=== PATIENT | male | born 1955 | race Caucasian/White ===

== ENCOUNTER → 2018-03-08 | Outpatient (CLI) | payer BC ==
[~2018-03-08] MED LIST: MULT-506 PO
[2018-03-08 18:20] LABS: BLOOD UREA NITROGEN 20 mg/dl (7-18); CREATININE 0.81 mg/dl (0.60-1.40)
== END | disposition home or self-care (01) ==
LOC: C.LABMFLN 13:30
PROVIDERS: ATTEND Family Medicine
DX: C61 Malignant neoplasm of prostate (principal)

== ENCOUNTER → 2018-03-16 | Outpatient (CLI) | payer BC ==
[~2018-03-16] MED LIST changes: +GADAVIST IV PRN
--- NOTE | 2018-03-16 14:39 | DIAGNOSTIC IMAGING REPORT ---
PELVIC COMBO CLINICAL HISTORY: 62 years-old Male presenting with CARCINOMA OF THE PROSTATE. TECHNIQUE: Multisequence, multiplanar MR imaging of the pelvis was performed before and after the administration of intravenous contrast. IV contrast: 6.5 mL of Gadavist. COMPARISON: CT from 11/28/2017. FINDINGS: Localizer images: Unremarkable. Bone marrow signal intensity normal. Visualized portion of the scrotum normal. Fat-containing right inguinal hernia. Allowing for underdistention, mild circumferential bladder wall thickening could suggest chronic bladder outlet obstruction. Prostate demonstrates mild changes of benign prostatic hyperplasia. No evidence of extraprostatic extension. Few scattered T1 hyperintense foci in the prostate on precontrast imaging may relate to calcification. No significant evidence of hemorrhage. No pelvic lymphadenopathy. IMPRESSION: 1. Benign prostatic hyperplasia. No cinthia evidence of extraprostatic extension or pelvic lymphadenopathy. Electronically signed by: Mikhail Alexander M.D. 03/16/2018 2:38 PM Dictated Date/Time: 03/16/2018 2:31 PM
== END | disposition home or self-care (01) ==
LOC: C.MRI 12:26
PROVIDERS: ATTEND Urology
DX: C61 Malignant neoplasm of prostate (principal)

== ENCOUNTER 2018-03-30 05:22 | Inpatient (IN) | payer BC ==
[2018-03-16 10:11] VITALS: BMI 24.0
--- NOTE | 2018-03-16 11:12 | DIAGNOSTIC IMAGING REPORT ---
CHEST 2 VIEWS ROUTINE CLINICAL HISTORY: PAT preoperative evaluation COMPARISON STUDY: No previous studies for comparison. FINDINGS: The bones soft tissues and hemidiaphragms are normal. The cardiomediastinal silhouette is normal. The lungs are clear. The pulmonary vasculature is normal. IMPRESSION: Negative chest. The above report was generated using voice recognition software. It may contain grammatical, syntax or spelling errors. Electronically signed by: Victor M Cortez M.D. 03/16/2018 11:10 AM Dictated Date/Time: 03/16/2018 11:10 AM
[2018-03-16 12:26] LABS: BASO % 0.2 %; BASO ABS # 0.01 K/uL (0-0.2); EOS % 0.9 %; EOS ABS # 0.05 K/uL (0-0.5); IG# 0.01 K/uL (0.00-0.02); LYMPH % 19.4 %; LYMPH ABS # 1.05 K/uL (1.2-3.4); MEAN CELL VOLUME 89.1 fL (80-100); MEAN CORPUSCULAR HEMOGLOBIN 30.4 pg (25-34); MEAN CORPUSCULAR HGB CONC 34.1 g/dl (32-36); MEAN PLATELET VOLUME 9.2 fL (7.4-10.4); MONO % 7.4 %; NEUT % 71.9 %; NEUT ABS # 3.88 K/uL (1.4-6.5); PLATELET COUNT 262 K/uL (130-400); RED CELL DISTRIBUTION WIDTH CV 12.7 % (11.5-14.5); RED CELL DISTRIBUTION WIDTH SD 40.9 fL (36.4-46.3)
[2018-03-16 12:45] LABS: CALCIUM 9.2 mg/dl (8.5-10.1); CREATININE 0.88 mg/dl (0.60-1.40); POTASSIUM 4.2 mmol/L (3.5-5.1)
[2018-03-30] VITALS (7 sets, daily range): BP systolic 93–117; BP diastolic 60–86; PULSE 52–65; TEMP 36.3–37.1; O2SAT 94–99; Ht 167.6 cm; Wt 67.6 kg
[~2018-03-30] VITALS: Ht 167.6 cm; Wt 67.6 kg
[~2018-03-30 05:22] MED LIST changes: -GADAVIST IV PRN
[2018-03-30] MEDS ORDERED: LACTATED RINGER'S 1000ML 1,000 ML IV SCH (06:00)
[2018-03-30] MEDS ORDERED: HEPARIN SOD 5000 UNIT/0.5 ML CARP SQ SCH (06:00)
[2018-03-30] MEDS ORDERED: ONDANSETRON INJ 2 MG/ML 2 ML VIAL ONE ×2 (06:53→12:26)
[2018-03-30] MEDS ORDERED: LIDOCAINE HCL 2% 2 ML VIAL (20MG/ML) ONE (06:53)
[2018-03-30] MEDS ORDERED: ROCURONIUM BROMIDE 10 MG/ML 5 ML VIAL ONE (06:53)
[2018-03-30] MEDS ORDERED: NEOSTIGMINE METHYLSULFATE 5 MG/5 ML SYR ONE ×2 (06:53→11:25)
[2018-03-30] MEDS ORDERED: PROPOFOL IV EMULSION 10 MG/ML 20 ML VIAL ONE (06:53)
[2018-03-30] MEDS ORDERED: GLYCOPYRROLATE INJ 0.2 MG/ML VIAL ONE ×2 (06:53→11:25)
[2018-03-30] MEDS ORDERED: DEXAMETHASONE SOD INJ 4 MG/ML VIAL ONE (06:53)
[2018-03-30] MEDS ORDERED: FENTANYL CITRATE INJ 50 MCG/1 ML 2 ML VIAL ONE ×2 (06:54→11:42)
[2018-03-30] MEDS ORDERED: MIDAZOLAM HCL 1 MG/ML 2ML VIAL ONE (06:54)
[2018-03-30] MEDS ORDERED: BUPIVACAINE 0.5 % 5 MG/1 ML MPF 30ML VIAL ONE (07:53)
[2018-03-30] MEDS ORDERED: BELLADONNA/OPIUM SUPP 60 MG SUPP PR ONE (07:58)
[2018-03-30] MEDS ORDERED: NURSING VERBAL MED ORDER STA (08:14)
--- NOTE | 2018-03-30 08:15 | History & Physical Bridge Note ---
H&P Re-Evaluation Bridge Note: I have examined the patient, reviewed the History & Physical and in the interval since the performance of the History & Physical I have noted the following changes of clinical significance: No changes noted
[2018-03-30] MEDS ORDERED: CEFAZOLIN 2000MG IV PUSH 15 ML IV STA (08:17)
[2018-03-30] MEDS ORDERED: TISSEEL FIBRIN SEALANT 4ML TOP ONE ×2 (10:00→11:19)
[2018-03-30] MEDS ORDERED: EpHEDrine SULFATE 50MG/5ML SYR ONE (10:45)
[2018-03-30] MEDS ORDERED: PHENYLEPHRINE 100MCG/ML 5ML SYR ONE (10:45)
[2018-03-30] MEDS ORDERED: ESMOLOL HCL 10 MG/ML 10 ML VIAL ONE (10:45)
[2018-03-30] MEDS ORDERED: CISATRACURIUM BESYLATE IV SOLN 2 MG/ML 10 ML VIAL ONE ×2 (10:57→11:06)
[2018-03-30] MEDS ORDERED: ATROPINE SULFATE 0.1 MG/ML 5ML SYR IV PRN (11:30)
[2018-03-30] MEDS ORDERED: LABETALOL HCL IV 5 MG/ML 20ML IV PRN (11:30)
[2018-03-30] MEDS ORDERED: ONDANSETRON INJ 2 MG/ML 2 ML VIAL IV PRN ×2 (11:30→12:00)
[2018-03-30] MEDS ORDERED: FLUMAZENIL 0.1 MG/1 ML 10 ML VIAL IV PRN (11:30)
[2018-03-30] MEDS ORDERED: NALOXONE HCL 0.4 MG/1 ML VIAL/CARP IV PRN (11:30)
[2018-03-30] MEDS ORDERED: HYDROmorphone INJ 0.5 MG/0.5 ML SYR IV PRN (11:30)
[2018-03-30] MEDS ORDERED: EpHEDrine SULFATE INJ 50 MG/ML AMP IV PRN (11:30)
[2018-03-30] MEDS ORDERED: PROMETHAZINE HCL INJ 12.5 MG in SODIUM CHLORIDE 0.9% 50ML 50 ML IV PRN (11:30)
[2018-03-30] MEDS ORDERED: FLOSEAL HEMOSTATIC MATRIX 10ML TOP ONE (11:37)
--- NOTE | 2018-03-30 11:55 | [facility] Post Operative Brief Note ---
Immediate Operative Summary Operative Date March 30, 2018. Pre-Operative Diagnosis 1. Prostate Cancer 2. Elevated Prostate Specific Antigen Post-Operative Diagnosis 1. Prostate Cancer 2. Elevated Prostate Specific Antigen Procedure(s) Performed Robotic Assisted Laparoscopic Prostatectomy Surgeon Dr. Austin Edwards Coding Compliance Manager Surgeon(s) DAKOTAH Celis Estimated Blood Loss 175 ML Findings Consistent with Post-Op Diagnosis Specimens Permanent: A. Right Pelvic Lymph Node (fresh) B. Michelle-prostatic fat C. Left Pelvic Lymph Node (fresh) D. Prostate and Seminal Vesicle Anesthesia Type General Complication(s) none Disposition Accompanied Pt To Recover: yes Disposition: Recovery Room / PACU (stable)
[2018-03-30] MEDS ORDERED: DOCU-94 PO (11:57)
[2018-03-30] MEDS ORDERED: ACET-749 PO (11:57)
[2018-03-30] MEDS ORDERED: DTR/5 PO (11:57)
[2018-03-30] MEDS ORDERED: CIPR1TAB10 PO (11:57)
--- NOTE | 2018-03-30 11:58 | Discharge Instructions ---
Discharge Instructions Date of Service March 30, 2018. Admission Reason for Admission: Prostate Cancer Discharge Discharge Diagnosis / Problem: Prostate Cancer Discharge Goals Goal(s): Decrease discomfort, Improve disease control, Therapeutic intervention Activity Recommendations Activity Limitations: per Instructions/Follow-up section Shower/Bathe: tomorrow 1. Do not lift >15lbs x 6 weeks. 2. No heavy exercise x 6 weeks. You may engage in light activity such as walking and stairs as tolerated. 3. No sexual intercourse until cleared by Dr. Edwards. 4. Do not drive x [address] while taking narcotics. 5. You have been prescribed the antibiotic Ciprofloxacin. Please start this 2 days prior to reyes catheter removal. Finish all of the antibiotic you have been prescribed. 6. Immediately call our office at [phone] if your catheter is removed for any reason. 7. Follow-up as scheduled. Please call our office at [phone] if you need to reschedule for any reason. . . Current Hospital Diet Patient's current hospital diet: Clear Liquid Diet Discharge Diet Recommended Diet: Regular Diet Procedures Procedures Performed: Robotic Assisted Laparoscopic Prostatectomy Pending Studies Studies pending at discharge: yes List of pending studies: prostate and lymph node pathology Medical Emergencies . Who to Call and When: Medical Emergencies: If at any time you feel your situation is an emergency, please call 911 immediately. . Non-Emergent Contact Non-Emergency issues call your: Urologist Call Non-Emergent contact if: temperature is above 101.5, your pain is not controlled, your pain is worsening, your pain is unusual for you, your pain is concerning you, wound has increased drainage, wound has increased redness, wound has increased pain, you have any medication questions . . "Provider Documentation" section prepared by Stephanie Morales. . [place] Drug Monitoring Program Search Results: patient reviewed within database, no issues identified
[2018-03-30] MEDS ORDERED: ACETAMINOPHEN/CODEINE 300/30MG TAB PO PRN (12:00)
[2018-03-30] MEDS ORDERED: OXYBUTYNIN CHLORIDE 5 MG TAB PO PRN (12:00)
[2018-03-30] MEDS ORDERED: KETOROLAC TROMETHAMINE 30 MG/ML VIAL IV. PRN (12:00)
[2018-03-30] MEDS ORDERED: HYDROmorphone INJ 2 MG/ML SYR/VIAL IV PRN (12:00)
[2018-03-30] MEDS ORDERED: CEFAZOLIN IV 2,000 MG in DEXTROSE 5% 50ML 50 ML IV SCH (12:00)
[2018-03-30] MEDS ORDERED: HYDROmorphone INJ 0.5 MG/0.5 ML SYR ONE (12:10)
--- NOTE | 2018-03-30 12:21 | [facility] Operative Report ---
Operative Report Operative Date March 30, 2018. Pre-Operative Diagnosis 1. Prostate Cancer 2. Umbilical hernia Post-Operative Diagnosis 1. Prostate Cancer 2. Umbilical hernia Procedure(s) Performed Robotic Assisted Laparoscopic Prostatectomy; closure of umbilical hernia Surgeon Dr. Austin Edwards Emergency Service Worker Surgeon(s) DAKTOAH Celis Estimated Blood Loss 175 ML Specimens Permanent: A. Right Pelvic Lymph Node (fresh) B. Michelle-prostatic fat C. Left Pelvic Lymph Node (fresh) D. Prostate and Seminal Vesicle Drains Larsen catheter Anesthesia Type General Complication(s) none Disposition yes Recovery Room / PACU (stable) Indications Prostate cancer Description of Procedure The patient was identified in the preoperative holding area, appropriate informed consents were reviewed and completed, and he was transported to the operating suite. Subcutaneous heparin was administered in the pre-operative holding area. Upon arrival in the operating suite, he received appropriate antibiotics and general anesthesia. He was positioned in dorsal lithotomy, a B& O suppository was inserted after digital rectal exam, and he was prepped and draped in standard fashion. A Larsen catheter was inserted in the sterile field. A Veress needle was passed per umbilicus with uniform insufflation of the abdomen to 12mmHg. He was placed in steep Trendelenburg position. A periumbilical incision was then made to accommodate a 12mm Visiport with 10mm 0degree laparoscope. Inspection of the abdomen was carried out, and there was no evidence of traumatic entry or injury secondary to the Veress needle. After confirming a clear anterior abdominal wall, ports were subsequently placed in standard robotic prostatectomy fashion without incident. To begin the robotic portion of the case, the left lateral aspect of the sigmoid was mobilized off of the left pelvic side wall to allow the pouch of Abelardo to be appropriately visualized. Of note, he is status post prior left inguinal hernia repair, and mesh was visible protruding from the left internal ring. There was moderate adhesive disease around this and I carefully dissected all adjacent tissues off of the mesh. The medial umbilical ligaments were then controlled with bipolar electrocautery just inferior to the umbilicus. Following cauterization, they were divided utilizing monopolar cautery. A peritoneal incision was carried from this location to the medial aspect of the internal inguinal rings bilaterally with care to avoid opening through the ring. This incision was concluded when the vas deferens was reached. Dissection of the bladder and prostate off of the posterior aspect of the pubic arch was completed allowing full visualization of the prostate. The fat overlying the prostate was removed en bloc and passed off the table as a specimen labeled "periprostatic fat". The endopelvic fascia was cleared during this portion of the procedure, and subsequently opened - first on the right and then the left. The incision through the endopelvic fascia began near the prostate-bladder junction and was carried to the apex with extreme care to preserve all lateral levator musculature as well as the periurethral musculature and sphincter complex. The puboprostatic ligaments were thinned slightly bilaterally before placing a 0-Vicryl figure of 8 stitch around the DVC. The lymph node dissection was then conducted. External iliac vessels were identified on the pelvic side wall. The packet of fat and lymphatic tissue that resides just under the iliac vein was elevated and off of the vein with a split and roll technique. The packet was dissected laterally to the circumflex vein and distally to the obturator nerve which was preserved. The proximal aspect of the packet was carried towards the bifurcation of the iliac vessels. A combination of monopolar and bipolar cautery were used to assist with control. Clips were placed at the proximal and distal aspects of the packet prior to transection. After completing the dissection on both sides, the packets were collected and passed off of the table as specimens labeled "pelvic lymph nodes". My attention then returned to the prostate, with identification of the bladder neck aided by gentle traction on the Larsen catheter and lateral to medial pressure at the presumed level of the bladder neck with the robotic instruments. An anterior cystotomy was made, the Larsen balloon deflated and the catheter guided through the incision to allow anterior retraction. I attempted to preserve maximal bladder neck musculature as I circumferentially dissected around the bladder neck. After incision through the posterior aspect of the mucosa, the dissection was carried through detrusor muscle until the bilateral ampullae of the vasa were identified. After identifying the vasa, I developed a pedicle packet on each side to help flatten the dissection and placed Weck clips across the most proximal and superficial aspects of these packets adjacent to the bladder. The packets were then divided allowing easier visualization of the vasa and posterior aspect of the prostate. Vasa were each dissected before being transected. These were used to further aide in anterior retraction as the bilateral seminal vesicals were dissected with very judicious use of bipolar electrocautery. Following SV dissection, a posterior plane behind the prostate was developed - splitting Denonvilliers's fascia. This dissection was carried as far as possible towards the apex as well as far as possible laterally. An incision in the lateral prostatic fascia was then made bilaterally to facilitate control of the vascular pedicles. The pedicles were each controlled with a series of Weck clips. The neurovascular bundles were identified and preserved, with increased caution adjacent to the area of cancer identified on biopsy. The apical attachments of the prostate were remaining at that stage. The DVC was divided with bipolar electrocautery. Michelle-prostatic tissue incised with sharp dissection and monopolar cautery. Maximal urethral length was preserved before dividing the urethra sharply. The prostate was entirely freed at that point, and collected in an EndoCatch bag before being moved out of the field of vision. Hemostasis was confirmed and anastomosis of the bladder and urethra was completed utilizing a double armed V- Lock stitch. A new Larsen catheter was inserted and the anastomosis tested with irrigation. There was no evidence of leak. Tisseel coagulant was placed over the lymph node dissection areas as well as around the anastomosis before additional placement of FloSeal coagulant around the anastomosis. The robot was undocked, the specimen extracted through expansion of the michelle- umbilical camera port. Of note, he has small umbilical hernia, and I elected to open the fascia through this hernia and incorporated into the closure to completely repair the hernia. The fascia was closed with a series of 0-PDS figure of 8 stitches. The right surgical assistant certified port was closed in two layers - with a figure of 8 0-Vicryl to reapproximate the fascia followed by 4-0 Monocryl to close the skin. Monocryl was used to close all other skin incisions. All wounds were dressed with Dermabond. The case was concluded and the patient taken to the PACU in stable condition. I attest to the content of the Intraoperative Record and any orders documented therein. Any exceptions are noted below.
[2018-03-30 12:22] LABS: HEMATOCRIT 38.6 % (42-52); HEMATOCRIT 38.9 % (42-52); HEMOGLOBIN 13.3 g/dL (14.0-18.0); MEAN CORPUSCULAR HEMOGLOBIN 30.1 pg (25-34); MEAN PLATELET VOLUME 8.7 fL (7.4-10.4); PLATELET COUNT 217 K/uL (130-400); RED CELL DISTRIBUTION WIDTH CV 12.8 % (11.5-14.5); RED CELL DISTRIBUTION WIDTH SD 41.5 fL (36.4-46.3); WHITE BLOOD COUNT 12.32 K/uL (4.8-10.8)
[2018-03-30 12:27] LABS: MEAN CORPUSCULAR HGB CONC 34.2 g/dl (32-36)
[2018-03-30 12:45] LABS: CALCIUM 8.1 mg/dl (8.5-10.1); CREATININE 0.83 mg/dl (0.60-1.40); POTASSIUM 3.3 mmol/L (3.5-5.1)
--- NOTE | 2018-03-30 13:08 | Anesthesiology Progress Note ---
Anesthesia Post Op Note Date & Time March 30, 2018 at 13:08 Vital Signs Pain Intensity: 3 Vital Signs Past 12 Hours Date Time Temp Pulse Resp B/P (MAP) Pulse Ox O2 Delivery O2 Flow Rate FiO2 03/30/18 12:47 51 19 03/30/18 12:47 51 19 99 03/30/18 12:46 98/60 03/30/18 12:44 36.4 51 16 98/60 (72) 100 Nasal Cannula 2 03/30/18 12:42 53 17 101/57 96 03/30/18 12:42 52 17 03/30/18 12:41 94/59 03/30/18 12:37 52 13 03/30/18 12:37 52 13 98 03/30/18 12:36 99/62 03/30/18 12:32 54 23 03/30/18 12:32 54 23 93 03/30/18 12:31 102/62 03/30/18 12:27 51 18 97 03/30/18 12:27 52 18 03/30/18 12:26 53 17 94/59 100 03/30/18 12:26 53 17 03/30/18 12:21 53 23 03/30/18 12:21 53 23 94/63 94 03/30/18 12:18 105/65 03/30/18 12:17 92/57 03/30/18 12:16 54 17 90/58 100 03/30/18 12:16 53 17 03/30/18 12:11 55 20 03/30/18 12:11 55 20 102/61 99 03/30/18 12:09 102/61 03/30/18 12:07 100/58 03/30/18 12:06 36.0 58 18 102/61 (66) 100 Oxymask 10 03/30/18 12:06 64 03/30/18 12:06 64 100 03/30/18 05:47 36.7 52 18 117/86 (96) 97 Room Air Notes Mental Status: alert / awake / arousable, participated in evaluation Pt Amnestic to Procedure: Yes Nausea / Vomiting: adequately controlled Pain: adequately controlled Airway Patency, RR, SpO2: stable & adequate BP & HR: stable & adequate Hydration State: stable & adequate Anesthetic Complications: no major complications apparent
[2018-03-30] MEDS: CEFAZOLIN IV 2,000 MG in SYRINGE 0 ML IV SCH ×2 (15:42→23:37)
[2018-03-30 15:51] LABS: INR 1.1 (0.9-1.1); PTT PATIENT 24.4 SECONDS (21.0-31.0)
[2018-03-30] MEDS: LACTATED RINGER'S 1000ML 1,000 ML IV SCH ×2 (17:03→23:37)
[2018-03-30] MEDS: ACETAMINOPHEN 500 MG TAB PO SCH ×2 (17:47→23:38)
[2018-03-30] MEDS: HEPARIN SOD 5000 UNIT/0.5 ML CARP SQ SCH (18:55)
[2018-03-30] MEDS: DOCUSATE SODIUM 100 MG CAP PO SCH (20:53)
[2018-03-31 03:02] VITALS: BP 120/65; PULSE 61; TEMP 37.3; O2SAT 93
[2018-03-31] MEDS: LACTATED RINGER'S 1000ML 1,000 ML IV SCH (05:53)
[2018-03-31] MEDS: ACETAMINOPHEN 500 MG TAB PO SCH ×2 (05:53→11:26)
[2018-03-31] MEDS: HEPARIN SOD 5000 UNIT/0.5 ML CARP SQ SCH (06:15)
[2018-03-31 07:42] LABS: BASO % 0.1 %; BASO ABS # 0.01 K/uL (0-0.2); EOS % 0.1 %; EOS ABS # 0.01 K/uL (0-0.5); HEMATOCRIT 36.3 % (42-52); HEMOGLOBIN 12.3 g/dL (14.0-18.0); IG# 0.02 K/uL (0.00-0.02); LYMPH % 13.9 %; LYMPH ABS # 1.43 K/uL (1.2-3.4); MEAN CELL VOLUME 89.2 fL (80-100); MEAN CORPUSCULAR HEMOGLOBIN 30.2 pg (25-34); MEAN CORPUSCULAR HGB CONC 33.9 g/dl (32-36); MEAN PLATELET VOLUME 9.1 fL (7.4-10.4); MONO % 8.8 %; MONO ABS # 0.91 K/uL (0.11-0.59); NEUT % 76.9 %; NEUT ABS # 7.91 K/uL (1.4-6.5); PLATELET COUNT 218 K/uL (130-400); RED CELL DISTRIBUTION WIDTH CV 13.1 % (11.5-14.5); RED CELL DISTRIBUTION WIDTH SD 42.7 fL (36.4-46.3); WHITE BLOOD COUNT 10.29 K/uL (4.8-10.8)
[2018-03-31] MEDS: CEFAZOLIN IV 2,000 MG in SYRINGE 0 ML IV SCH (07:42)
[2018-03-31] MEDS: DOCUSATE SODIUM 100 MG CAP PO SCH (07:51)
[2018-03-31] MEDS ORDERED: NURSING VERBAL MED ORDER ONE (08:15)
[2018-03-31 08:17] LABS: CALCIUM 8.3 mg/dl (8.5-10.1); CREATININE 0.83 mg/dl (0.60-1.40); POTASSIUM 3.9 mmol/L (3.5-5.1)
[2018-03-31 08:22] VITALS: BP 111/65; PULSE 62; TEMP 36.9; O2SAT 96
--- NOTE | 2018-03-31 08:34 | Clinical Documentation Query ---
CLINICAL DOCUMENTATION QUERY Dr. CLIFTON, In your clinical opinion is this patient being managed for: ( ) Acute blood loss anemia ( ) Not Agree (x ) Other explanation of clinical findings (Please Explain. If no explanation given, this would be considered a no response.) (dilution from IVF and modest operative blood loss) ( ) Unable to determine ( ) Need to Discuss (Please call CDS via extension or qliq. If no interaction occurs this is considered a no response.) The medical record reflects the following clinical findings, treatment, and risk factors. Clinical Indicators: 62 yo male presenting with prostate cancer and an umbilical hernia. Baseline Hgb 15/Hct 44 dropping to 12.3/36.3 postoperatively. EBL of 175 cc Treatment: IV fluids, serial CBC's Risk Factors: surgical blood loss Please clarify and document your clinical opinion in the progress notes and discharge summary. Terms such as "probable", "suspected", "likely", "questionable", "possible", or "still to be ruled out" are acceptable. IF IN AGREEMENT, YOU MUST DOCUMENT ABOVE DIAGNOSTIC STATEMENT IN DAILY PROGRESS NOTES AND DISCHARGE SUMMARY. This document is not part of the patient's record. Thank You, Vidhya Damian RN [phone]
--- NOTE | 2018-03-31 08:36 | Clinical Documentation Query ---
CLINICAL DOCUMENTATION QUERY Ms. STALLWORTH, In your clinical opinion is this patient being managed for: ( ) Acute blood loss anemia ( ) Not Agree ( ) Other explanation of clinical findings (Please Explain. If no explanation given, this would be considered a no response.) ( ) Unable to determine ( ) Need to Discuss (Please call CDS via extension or qliq. If no interaction occurs this is considered a no response.) The medical record reflects the following clinical findings, treatment, and risk factors. Clinical Indicators: 62 yo male presenting with prostate cancer and an umbilical hernia. Baseline Hgb 15/Hct 44 dropping to 12.3/36.3 postoperatively. EBL of 175 cc Treatment: IV fluids, serial CBC's Risk Factors: surgical blood loss Please clarify and document your clinical opinion in the progress notes and discharge summary. Terms such as "probable", "suspected", "likely", "questionable", "possible", or "still to be ruled out" are acceptable. IF IN AGREEMENT, YOU MUST DOCUMENT ABOVE DIAGNOSTIC STATEMENT IN DAILY PROGRESS NOTES AND DISCHARGE SUMMARY. This document is not part of the patient's record. Thank You, Vidhya Damian RN [phone]
--- NOTE | 2018-03-31 09:30 | Progress Note ---
Subjective Date of Service: March 31, 2018. Subjective Pt evaluation today including: conversation w/ patient, physical exam, lab review Voiding: reyes catheter in place Progressing very well post operatively - ambulating - tolerating a diet - minimal pain - very content with his current status Review of Systems Abdomen: + pain (appropriate post operative pain) Objective Vital Signs Date Time Temp Pulse Resp B/P (MAP) Pulse Ox O2 Delivery O2 Flow Rate FiO2 03/31/18 08:22 36.9 62 16 111/65 (80) 96 Room Air 03/31/18 03:02 37.3 61 15 120/65 (83) 93 Room Air 03/30/18 23:47 Room Air 03/30/18 23:35 37.1 59 16 106/66 (79) 94 Room Air 03/30/18 16:56 36.9 65 18 93/61 (72) 99 Room Air 03/30/18 15:40 36.8 61 18 96/60 (72) 95 Room Air 03/30/18 15:20 Room Air 03/30/18 14:25 36.3 58 19 94/62 (73) 97 Nasal Cannula 2.0 03/30/18 13:51 36.5 56 15 94/62 (73) 98 Nasal Cannula 2.0 03/30/18 13:20 36.5 55 16 100/61 (74) 97 Nasal Cannula 2.0 03/30/18 13:20 Nasal Cannula 2.0 03/30/18 13:20 97 Nasal Cannula 2.0 03/30/18 12:47 51 19 03/30/18 12:47 51 19 99 03/30/18 12:46 98/60 03/30/18 12:44 36.4 51 16 98/60 (72) 100 Nasal Cannula 2 03/30/18 12:42 53 17 101/57 96 03/30/18 12:42 52 17 03/30/18 12:41 94/59 03/30/18 12:37 52 13 03/30/18 12:37 52 13 98 03/30/18 12:36 99/62 03/30/18 12:32 54 23 03/30/18 12:32 54 23 93 03/30/18 12:31 102/62 03/30/18 12:27 51 18 97 03/30/18 12:27 52 18 03/30/18 12:26 53 17 94/59 100 03/30/18 12:26 53 17 03/30/18 12:21 53 23 03/30/18 12:21 53 23 94/63 94 03/30/18 12:18 105/65 03/30/18 12:17 92/57 03/30/18 12:16 54 17 90/58 100 03/30/18 12:16 53 17 03/30/18 12:11 55 20 03/30/18 12:11 55 20 102/61 99 03/30/18 12:09 102/61 03/30/18 12:07 100/58 03/30/18 12:06 36.0 58 18 102/61 (66) 100 Oxymask 10 03/30/18 12:06 64 03/30/18 12:06 64 100 Physical Exam General Appearance: WD/WN, no apparent distress Eyes: normal inspection, PERRL ENT: hearing grossly normal Neck: no adenopathy Cardiovascular: no edema Abdomen: soft (minimal hematoma under a right sided port site, other incisions appear appropriate - clear urine) Neurologic/Psychiatric: alert, normal mood/affect, oriented x 3 Laboratory Results Last 24 Hours Test 03/30/18 12:10 03/30/18 15:06 03/31/18 07:19 White Blood Count 12.32 K/uL 10.29 K/uL Red Blood Count 4.42 M/uL 4.07 M/uL Hemoglobin 13.3 g/dL 12.3 g/dL Hematocrit 38.9 % 36.3 % Mean Corpuscular Volume 88.0 fL 89.2 fL Mean Corpuscular Hemoglobin 30.1 pg 30.2 pg Mean Corpuscular Hemoglobin Concent 34.2 g/dl 33.9 g/dl RDW Standard Deviation 41.5 fL 42.7 fL RDW Coefficient of Variation 12.8 % 13.1 % Platelet Count 217 K/uL 218 K/uL Mean Platelet Volume 8.7 fL 9.1 fL Sodium Level 140 mmol/L 140 mmol/L Potassium Level 3.3 mmol/L 3.9 mmol/L Chloride Level 108 mmol/L 105 mmol/L Carbon Dioxide Level 26 mmol/L 31 mmol/L Anion Gap 6.0 mmol/L 4.0 mmol/L Blood Urea Nitrogen 21 mg/dl 13 mg/dl Creatinine 0.83 mg/dl 0.83 mg/dl Est Creatinine Clear Calc Drug Dose 85.4 ml/min 85.4 ml/min Estimated GFR () 110.8 110.8 Estimated GFR (Non- 95.6 95.6 BUN/Creatinine Ratio 25.1 15.4 Random Glucose 165 mg/dl 101 mg/dl Calcium Level 8.1 mg/dl 8.3 mg/dl Prothrombin Time 11.1 SECONDS Prothromb Time International Ratio 1.1 Activated Partial Thromboplast Time 24.4 SECONDS Partial Thromboplastin Ratio 0.9 Neutrophils (%) (Auto) 76.9 % Lymphocytes (%) (Auto) 13.9 % Monocytes (%) (Auto) 8.8 % Eosinophils (%) (Auto) 0.1 % Basophils (%) (Auto) 0.1 % Neutrophils # (Auto) 7.91 K/uL Lymphocytes # (Auto) 1.43 K/uL Monocytes # (Auto) 0.91 K/uL Eosinophils # (Auto) 0.01 K/uL Basophils # (Auto) 0.01 K/uL Immature Granulocyte % (Auto) 0.2 % Immature Granulocyte # (Auto) 0.02 K/uL Assessment and Plan POD#1 s/p RALP with LND - cont ambulation - advance diet - assuming he continues to do well this AM, plan for home after lunch
[2018-03-31 11:27] VITALS: BP 111/65; PULSE 62; TEMP 36.9; O2SAT 96
[2018-03-31 11:38] VITALS: BP 130/72; PULSE 70; TEMP 37.1; O2SAT 97
== END 2018-03-31 13:49 | disposition home or self-care (01) | DRG 708 ==
LOC: C.ACU 05:22 → C.MSN 11:51 → ENRESERV 12:38
PROVIDERS: ADMIT Urology; ATTEND Urology
PROC: 07BC4ZX Excision of Pelvis Lymphatic, Percutaneous Endoscopic Approach, Diagnostic (ICD-10-PCS; principal; 2018-03-30 07:30)
PROC: 0VT34ZZ Resection of Bilateral Seminal Vesicles, Percutaneous Endoscopic Approach (ICD-10-PCS; principal; 2018-03-30 07:30)
PROC: 8E0W4CZ Robotic Assisted Procedure of Trunk Region, Percutaneous Endoscopic Approach (ICD-10-PCS; principal; 2018-03-30 07:30)
PROC: 0VT04ZZ Resection of Prostate, Percutaneous Endoscopic Approach (ICD-10-PCS; principal; 2018-03-30 07:30)
PROC: 0WQF0ZZ Repair Abdominal Wall, Open Approach (ICD-10-PCS; principal; 2018-03-30 07:30)
DX: C61 Malignant neoplasm of prostate (principal); K42.9 Umbilical hernia without obstruction or gangrene

== ENCOUNTER → 2018-06-30 | Outpatient (CLI) | payer BC ==
[~2018-06-30] MED LIST changes: +ACET300T3 PO; +CIPR1TAB10 PO
== END | disposition home or self-care (01) ==
LOC: C.LABMFLN 12:39
PROVIDERS: ATTEND Urology
DX: C61 Malignant neoplasm of prostate (principal); H61.23 Impacted cerumen, bilateral